=== PATIENT | male | born 1940 | race Caucasian/White ===

== ENCOUNTER 2016-11-18 18:54 | Inpatient (IN) | payer OTHER ==
--- NOTE | ~2016-11-18 | CT71 ---
[facility] A Service of [facility] RADIOLOGY TEXT RESULTS PATIENT: KAYE FRANCOIS LOCATION: [facility] 339 : 38 UNIT #: [id number] AGE: [address]: Alejandra To MD SEX: M ORDER DR: [id number] [facility]. [place], [place] [address] [id number] I MR#: [id number] Acc #: [id number] NAME: KAYE FRANCOIS : 1940 SEX: M STUDY DATE/TIME: 11/19/2016 13:17 UNIT: [address] ROOM: [facility] STUDY DESCRIPTION: CT Head Wo Contrast Attending Physician: Alejandra To M.D. Ordering Physician: Alejandra To M.D. Primary Care Physician: Phill Perez M.D. MEDICAL IMAGING REPORT This report is preliminary unless electronic signature is present EXAM CT brain without contrast media 11/19 COMPARISON 08/25/2015 HISTORY New onset confusion today, problems with memory. TECHNIQUE Axial imaging of the brain was performed without contrast and directly compared to a prior study of 08/25/2015. This CT exam was performed with one or more of the following radiation dose reduction techniques: automatic exposure control, adjustment of mA and/or kV according to patient size, and iterative reconstruction. FINDINGS There is generalized enlargement of the ventricles and CSF-containing spaces. No intra or extraaxial mass lesions, fluid collections or mass effect are seen. No focal areas of low attenuation or evidence of acute hemorrhage. There is atherosclerotic calcification of the left vertebral artery in both carotid siphons. Bone windows are reviewed. Sinuses and mastoid air cells are clear. CONCLUSION Atrophy, otherwise negative noncontrast CT of the brain. No change from prior study of August 2015. Dictated by... Paolo Thompson M.D. THIS IS AN ELECTRONICALLY VERIFIED REPORT [facility] A Service of [facility] RADIOLOGY TEXT RESULTS PATIENT: KAYE FRANCOIS LOCATION: [facility] 339- : 38 UNIT #: [id number] AGE: [address]: Alejandra To MD SEX: M ORDER DR: Paolo Thompson M.D. at 11/19/2016 5:11 PM HITESH/get TD: 11/19/2016 16:34 JOB #: [id number] MEDICAL IMAGING REPORT Page 1 of 1 COPY
--- NOTE | ~2016-11-18 | CR72 ---
[facility] A Service of [facility] RADIOLOGY TEXT RESULTS PATIENT: KAYE FRANCOIS LOCATION: [facility] 339-01 : 38 UNIT #: [id number] AGE: [address]: Alejandra To MD SEX: M ORDER DR: [id number] [facility] [address] [facility] [place] [facility]. [place], [place] [address] [id number] I MR#: [id number] Acc #: [id number] NAME: KAYE FRANCOIS : 1940 SEX: M STUDY DATE/TIME: 11/18/2016 20:29 UNIT: [address] ROOM: [facility] STUDY DESCRIPTION: CR Chest Single View Portable Attending Physician: Alejandra To M.D. Ordering Physician: Rojelio Sahu M.D. Primary Care Physician: Phill Perez M.D. MEDICAL IMAGING REPORT This report is preliminary unless electronic signature is present EXAM Portable chest HISTORY Cough and shortness of air and fever and weakness for 1 week. FINDINGS Cardiac size and pulmonary vascularity are normal. Mild interstitial prominence in both lungs, new or increased compared to 07/23/2016, could be due to mild interstitial edema or nonspecific pneumonitis. No focal airspace infiltrates. No pleural effusions. Fixation plate extends from the lower cervical spine to T1. IMPRESSION Mild interstitial prominence in both lungs could be due to interstitial edema or nonspecific pneumonitis. No focal infiltrates. No effusions. Dictated by... Lawson Martinez M.D. THIS IS AN ELECTRONICALLY VERIFIED REPORT Lawson Martinez M.D. at 11/19/2016 3:13 PM RUPERTO/komal TD: 11/19/2016 08:31 JOB #: [id number] MEDICAL IMAGING REPORT Page 1 of 1 COPY
--- NOTE | ~2016-11-18 | EKG ---
PATIENT: KAYE FRANCOIS UNIT #: [id number] Ventricular Rate: 63 BPM Atrial Rate: 63 BPM P-R Interval: 176 ms QRS Duration: 88 ms Q-T Interval: 426 ms QTC Calculation(Bezet): 435 ms P [place]: 63 degrees Calculated R [place]: -4 degrees Calculated T [place]: 11 degrees Diagnosis Line: Normal sinus rhythm Diagnosis Line: Minimal voltage criteria for LVH, may be normal Diagnosis Line: variant Diagnosis Line: Borderline ECG Diagnosis Line: When compared with ECG of 25-AUG-2015 19:01, Diagnosis Line: T wave inversion now evident in in lead 111 Diagnosis Line: Confirmed by CLAUDE SANCHEZ, IVET ([id number]) on Diagnosis Line: 11/19/2016 4:39:41 PM INTERPRETING MD: JOEY
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
--- NOTE | ~2016-11-18 | DS ---
Unit #: [id number] #: [id number] Patient: KAYE ORTEZ [id number] [address] [address] [id number] I MR#: [id number] NAME: KAYE ORTEZ ROOM: 339 Age: 76 Sex: M Admission Date: 11/18/2016 : 1940 Discharge Date: 11/20/2016 Attending Physician: Alejandra To M.D. Primary Care Physician: Phill Perez M.D. DISCHARGE SUMMARY PRINCIPAL DIAGNOSES 1. Acute exacerbation of chronic obstructive pulmonary disease. 2. Acute pneumonitis, likely viral in origin. 3. Vitamin B12 deficiency with vitamin B12 level of 202. 4. 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 5. Hypertension. 6. Hyperglycemia with stable hemoglobin A1C of 5.9. 7. Macrocytic anemia secondary to vitamin B12 deficiency. 8. Moderate protein malnutrition. 9. Tobaccoism. 10. Chronic alcohol abuse. 11. Chronic back pain, maintained on narcotics. 12. Physical deconditioning. 13. Osteoporosis. 14. Hyperlipidemia. 15. Anxiety. 16. Peripheral neuropathy. 17. Benign prostatic hypertrophy. CONSULTANTS None. DIAGNOSTIC STUDIES IMAGING: CT of the head without contrast on November 19, 2016 with atrophy and no other acute findings. Chest x-ray on November 18, 2016 with interstitial prominence in both lungs. CARDIOVASCULAR: Two-dimensional echocardiogram on November 19, 2016 with ejection fraction of 60% to 65%. Mild concentric left ventricular hypertrophy noted, mild mitral regurgitation. CLINICAL HISTORY AND HOSPITAL COURSE Mr. Ortez is a 76-year-old male who was brought by EMS to the hospital with complaints initially of stomach pain. However, abdominal exam was benign in the ER, but he was found to be wheezing, and chest x-ray revealed questionable pneumonitis. The patient was afebrile, and white blood cell count was normal. He was admitted for further evaluation. The patient was placed on antibiotics and IV steroids. He had no evidence of hypoxia and did not have any fever or leukocytosis during hospitalization. From a respiratory standpoint he was fine. Evaluation, however, both in the ER and the following morning of the , Unit #: [id number] #: [id number] Patient: KAYE ORTEZ indicated some significant memory loss. The patient was oriented to self but not to time and only intermittently to place. Discussion with the patient's family and his long-term girlfriend indicate that this had been progressing over many months to years. CT scan of the head was done and revealed only atrophy. TSH was done, and this was normal. Ammonia level was normal. Vitamin B12 was found to be mildly low. My clinical suspicion is the patient has some chronic dementia, is likely alcohol related, which I have discussed with his family extensively. At this point family will discuss further plans for safe care upon discharge. The patient was seen by physical therapy and noted he was significantly weak and had some difficulty with balance. The patient is agreeable to subacute rehab. The patient's other chronic conditions remained stable. He will be discharged to rehab today if contract can be arranged. DISCHARGE CONDITION Stable. DISCHARGE STATUS Discharge to subacute rehab. DISCHARGE MEDICATIONS 1. Flomax 0.4 mg daily. 2. Prednisone 20 mg 2 tablets daily for 2 days, then 1 tablet daily for 2 days, then discontinue. 3. Doxycycline 100 mg p.o. b.i.d. to continue through November 23, 2016, then discontinue. 4. Gabapentin 400 mg t.i.d. 5. Atorvastatin 20 mg daily. 6. Klonopin 2 mg at bedtime. 7. Coreg 3.125 mg b.i.d. 8. Ferrous gluconate 324 mg daily. 9. Laton 10/325 mg 1-2 tablets p.o. q.4 hours p.r.n. pain; no more than 5 tablets per day. 10. OxyContin 30 mg b.i.d. 11. Protonix 40 mg daily for one month. 12. Vitamin B12 - 1,000 mcg p.o. daily. DISCHARGE INSTRUCTIONS Patient was instructed to follow a heart healthy diet. He can increase his activity as tolerated. FOLLOW-UP Patient will follow up with his primary care provider, Dr. Perez, upon discharge from rehab. NOTE: Time spent on discharge today - greater than 40 minutes. Dictated by... Alejandra To M.D. [place] Unit #: [id number] #: [id number] Patient: KAYE ORTEZ TD: 11/20/2016 12:40 JOB #: [id number] DISCHARGE SUMMARY Page 1 of 1 X Alejandra To MD X DISCHARGE SUMMARY
[~2016-11-18 18:54] MED LIST: ACETAMINOPHEN PO; ANEXSIA 5/325 M1 TA1 PO; ASPIRIN81 MG PO; ATORVASTATIN CA20 MG PO; AUGMENTIN PO; AUGMENTIN875 MG PO; BENZONATATE PO; CIPRO PO; CLONAZEPAM2 MG PO; COMBIVENT U/D3 ML INH; COREG PO; COREG3.125 MG PO; COREG6.25 M1 PO; FLOMAX0.4 M1 PO; GABAPENTIN400 MG PO; HYDROCODON-ACE1 EAC4 PO; HYDROCODON-ACE1 EAC5 PO; HYDROCODONE-A1 UDTA2 PO; HYDROCODONE-APA1 T54 PO; KLONOPIN; KLONOPIN PO; KLONOPIN1 MG PO; KLONOPIN2 MG PO; LIPITOR20 MG PO; MIRALAX119 GM PO; NEURONTIN PO; NEURONTIN300 MG PO; NORCO 10-325 TA1 TAB PO; NORCO 5/325 TAB1 TAB PO; NORVASC10 MG PO; OXYCODON HCL-AP1 TA2; OXYCODONE HCL20 M1 PO; OXYCONTIN 20MG20 M1 PO; OXYCONTIN20 MG PO; OXYCONTIN30 MG; OXYCONTIN30 MG PO; OXYCONTIN40 MG PO; PERCOCET 10/3251 TAB PO; SENOKOT S1 TA1 PO; SYMBICORT 160/4.6 GM INH
[2016-11-18] MEDS ORDERED: HYDROCODON-ACE1 EAC5 PO (19:56)
[2016-11-18] MEDS ORDERED: FERROUS SULFAT325 MG PO (19:57)
[2016-11-18 20:41] LABS: BASOPHIL% 0.3 % (0-2.5); EOSINOPHIL% 0.2 % (0.0-7.0); HEMATOCRIT 35.5 % (38.0-50.0); HEMOGLOBIN 12.1 gm/dL (13.0-16.0); LYMPHOCYTE# 1.3 X10e3 (1.0-3.5); LYMPHOCYTE% 29.2 % (17.0-45.0); MEAN CORPUSCULAR HEMOGLOBIN 34.7 PG (28-34); MEAN PLATELET VOLUME 7.7 FL (6.5-11.5); MONOCYTE# 0.1 X10e3 (0-1.0); NEUTROPHIL# 3.1 X10e3 (1.5-7.1); NEUTROPHIL% 67.3 % (40-75); PLATELET COUNT 207 X10e3 (140-420); RED BLOOD COUNT 3.48 X10e (3.90-5.60); RED CELL DISTRIBUTION WIDTH 13.2 % (11.0-15.5); WHITE BLOOD COUNT 4.6 X10e3 (4.0-10.5)
[2016-11-18 20:43] LABS: DIFF IND NO
[2016-11-18 20:56] LABS: ALBUMIN SERUM 2.6 g/dL (3.5-5.0); BILIRUBIN, DIRECT 0.2 mg/dL (0.0-0.2); BILIRUBIN,INDIRECT 0.8 mg/dL (0.0-0.9); BUN/CREATININE RATIO 15.55; CALCIUM SERUM 7.9 mg/dL (8.4-10.2); CREATININE SERUM 0.9 mg/dL (0.6-1.4); GLOM FILT RATE Estimated 81.5 mL/min (>60); POTASSIUM 3.6 mmol/L (3.5-5.1); PROTEIN TOTAL SERUM 8.9 g/dL (6.0-8.3)
[2016-11-19 01:24] LABS: BASOPHIL% 0.4 % (0-2.5); HEMATOCRIT 35.3 % (38.0-50.0); HEMOGLOBIN 11.8 gm/dL (13.0-16.0); LYMPHOCYTE# 0.7 X10e3 (1.0-3.5); LYMPHOCYTE% 15.3 % (17.0-45.0); MEAN CELL VOLUME 103.1 FL (83-96); MEAN CORPUSCULAR HEMOGLOBIN 34.4 PG (28-34); MEAN CORPUSCULAR HGB CONC 33.3 g/dL (30-36); MEAN PLATELET VOLUME 8.1 FL (6.5-11.5); MONOCYTE% 0.6 % (3.0-12.0); NEUTROPHIL# 3.6 X10e3 (1.5-7.1); NEUTROPHIL% 83.7 % (40-75); PLATELET COUNT 192 X10e3 (140-420); RED BLOOD COUNT 3.42 X10e (3.90-5.60); RED CELL DISTRIBUTION WIDTH 13.2 % (11.0-15.5); WHITE BLOOD COUNT 4.3 X10e3 (4.0-10.5)
[2016-11-19 01:27] LABS: DIFF IND NO
[2016-11-19 01:49] LABS: CALCIUM SERUM 7.7 mg/dL (8.4-10.2); CREATININE SERUM 0.8 mg/dL (0.6-1.4); GLOM FILT RATE Estimated 85.6 mL/min (>60); POTASSIUM 3.5 mmol/L (3.5-5.1)
[2016-11-19 15:22] LABS: INR 1.1; PROTHROMBIN TIME (PATIENT) 12.2 SECONDS (10.0-11.7)
[2016-11-19 17:40] LABS: IRON SERUM 68 ug/dL (45-182); TOTAL IRON BINDING CAPACITY 225 ug/dL (252-460); TRANSFERRIN 161 mg/dL (180-329); TRANSFERRIN SATURATION 30 % (20-50)
[2016-11-20 07:16] LABS: INR 1.2
== END 2016-11-20 19:00 | DRG 190 ==
LOC: CED 18:54 → CEDOF 21:45 → CED 21:55 → CEDOF 21:55 → C3A PCU 22:45
PROVIDERS: Emergency Medicine; Internal Medicine
PROC: B246YZZ Ultrasonography of Right and Left Heart using Other Contrast (ICD-10-PCS; principal; 2016-11-18)
DX: J44.0 Chronic obstructive pulmonary disease with (acute) lower respiratory infection (principal); J12.9 Viral pneumonia, unspecified; E44.0 Moderate protein-calorie malnutrition; F10.27 Alcohol dependence with alcohol-induced persisting dementia; J44.1 Chronic obstructive pulmonary disease with (acute) exacerbation; I10 Essential (primary) hypertension; R73.9 Hyperglycemia, unspecified; D51.9 Vitamin B12 deficiency anemia, unspecified; F17.290 Nicotine dependence, other tobacco product, uncomplicated; M54.9 Dorsalgia, unspecified; G89.29 Other chronic pain; M81.0 Age-related osteoporosis without current pathological fracture; N40.0 Benign prostatic hyperplasia without lower urinary tract symptoms; F41.9 Anxiety disorder, unspecified; E78.5 Hyperlipidemia, unspecified
CPT/HCPCS: 36415; 70450; 71010; 80048; 80076; 82140; 82607; 83036; 83540; 83550; 83605; 83880; 84443; 84484; 85025; 85610; 87040; 93005; 93306; 94640; 94760; 96361; 96374; 97116; 97161; 97166; 97535; 99285; G8978-GP; G8979-GP; G8987-GO; G8988-GO; J0456; J0696; J1650; J2920; J2930; J3420